=== PATIENT | female | born 1970 | race Native Hawaiian/Other Pacific Islander ===

== ENCOUNTER 2023-02-12 10:48 | Outpatient (CLI) | payer BC | END 2023-02-12 21:19 | disposition home or self-care (01) | LOC: RAD 10:48 | PROVIDERS: ATTEND Internal Medicine Rheumatology | DX: M17.11 Unilateral primary osteoarthritis, right knee (principal) ==

== ENCOUNTER 2023-03-22 10:44 | Outpatient (CLI) | payer BC | END 2023-03-22 17:00 | disposition home or self-care (01) | LOC: RAD 10:44 | PROVIDERS: ATTEND Nurse Practitioner Family | DX: L40.9 Psoriasis, unspecified (principal); M06.4 Inflammatory polyarthropathy; M17.11 Unilateral primary osteoarthritis, right knee; M54.2 Cervicalgia; M75.22 Bicipital tendinitis, left shoulder ==